=== PATIENT | male | born 1970 | race Caucasian/White ===

== ENCOUNTER → 2021-10-03 | Day surgery (SDC) | payer BC ==
[~2021-10-03] MED LIST: Ketamine 200 MG/20 ML MDV ONE; Propofol 200 MG/20 ML SDV ONE; fentaNYL 100 MCG/2 ML SDV ONE
[2021-10-03] MEDS: Lactated Ringers 1,000 ML IV SCH (10:38)
== END ==
LOC: CC.SDS 10:21
PROVIDERS: ATTEND Family Medicine
DX: Z12.11 Encounter for screening for malignant neoplasm of colon (principal); D12.3 Benign neoplasm of transverse colon; K64.9 Unspecified hemorrhoids; E78.5 Hyperlipidemia, unspecified; M72.2 Plantar fascial fibromatosis; L57.0 Actinic keratosis; E66.9 Obesity, unspecified; Z68.30 Body mass index [BMI] 30.0-30.9, adult; Z79.899 Other long term (current) drug therapy; Z98.890 Other specified postprocedural states
CPT/HCPCS: 00812; J2704; J3010; J7120